=== PATIENT | male | born 1965 | race Caucasian/White ===

== ENCOUNTER 2016-03-06 08:45 | Observation (INO) | payer OTHER ==
[~2016-03-06] VITALS: Ht 180.3 cm; Wt 95.9 kg
[2016-03-06 08:48] VITALS: BP 146/97; PULSE 79; RESP 20; O2SAT 95
--- NOTE | 2016-03-06 09:07 | ED.REPORT ---
HPI-Back Pain 40 and Over Date of Service Mar 06, 2016 ED Provider: Kelly Ramachandran MD 50 year old male with a history of chronic back pain following a work injury in 2011 presents to the ED due to an exacerbation of his chronic back pain this morning. Pt woke up this morning with severe 10/10 pain. The pain is exacerbated and relieved positionally. Currently he c/o 7/10 pain. Pt has used THC and EtOH for pain relief. Pt denies numbness, weakness, fever, chills and changes in bowel or bladder. Additionally, he complains of LLE swelling and erythema. Nursing Notes Stated Complaint: BACK AND HIP PAIN Chief Complaint: General Complaint Nursing Notes Reviewed: Yes Allergies: Coded Allergies: No Known Allergies (Verified , 03/06/16) No Active Prescriptions or Reported Meds General Time Seen by MD: 09:06 Chief Complaint Back pain Hx Obtained From: Patient Arrived By: Wheelchair Sudden in Onset?: Yes Onset Occurred: 1 - 4 hours ago Symptom Duration: Since onset Caused by: Chronic Injury Location: : Spinal lumbar area Quality: Same as prior Radiation: : Does not radiate Severity: Current: Pain level 7 out of 10 (was 10/10 when he woke up) Associated with: Denies: Fever, Incontinence bladder, Incontinence bowel, Numbness both low ext, Weakness both lower ext Recent Healthcare: No recent doctor visit, No recent hospitalization Similar Sx Previous: Yes Past Medical History Past Medical History Chronic back pain from work injury. Past Surgical History None reported Smoking History Unknown if Ever Smoker Social History Drug Use: THC Other Social History: Lives with children, Local resident Ambulatory Status Independent Review of Systems Basic Review of Systems Eyes: Vision NL, No discharge ENT: Hearing NL, No pain, No nasal congestion, No pharyngeal pain Psychiatric: Normal thought content Constitutional: Denies: Chills, Fever Respiratory: Denies: Shortness of breath Cardiovascular: Denies: Chest pain GI: Denies: Diarrhea, Nausea, Vomiting Male: Denies Dysuria, Denies Flank pain Musculoskeletal: Reports: Back pain, Extremity pain, Extremity swelling Neurologic: Denies: Bladder dysfunction, Bowel dysfunction, Numbness, Weakness Complete sys rev & neg: except as marked. Physical Exam Initial Vital Signs Vital Signs (First) Date Time Temp Pulse Resp B/P Pulse Ox O2 Delivery O2 Flow Rate FiO2 03/06/16 08:48 36.7 79 20 146/97 95 Room Air Initial VS: Reviewed Head / Eyes: Atraumatic, Normocephalic, PERRL ENT: Mucous membranes moist, Conjunctiva normal, No scleral icterus Neck: Supple, Non-tender, Full range of motion Skin: Warm, Dry, No cyanosis Psychiatric: Mood/affect normal, Behavior normal, Normal thought content General/Constitutional: Awake, Alert Respiratory / Chest: Breath sounds NL, Breath sounds = bilat, No respiratory distress, No rales, No rhonchi, No wheezing Cardiovascular: Heart rate NL, Regular rhythm, Heart sounds NL, No murmurs, Peripheral circulation NL Abdomen: Atraumatic, Soft, Non-tender Back: Full range of motion General lumbar and R perilumbar spinal tenderness. Neurologic: Oriented X3, Speech NL, No motor deficits, No sensory deficits, Gait NL No foot drop. Lower Extremity / Pelvis / MS: Full range of motion, Neurologic intact, Vascular intact Edema LLE Interpretation & Diagnostics Lab Results Interpretation Result Diagram: 03/06/16 1145 03/06/16 1145 US Focused Lower Ext Venous IMPRESSION: Appearance is consistent with some acute deep venous thrombosis in the peripheral thigh. Dictated by: Sumanth Donohue M.D. on 03/06/2016 at 11:09 Exam Interpreted by: Radiologist Re-Eval/Medical Decision Med Decision/Clinical Course Patient has chronic intermittent back pain for which she came however during questioning also complained of left leg swelling and some minor trauma to the area. He was found to have a DVT. The patient says he does not have a primary care provider has a follow-up appointment with any provider later this month. The patient will be admitted to start treatment for his DVT and start his workup. Source of Hx: Old records Re-Evaluation/Progress : Time of Eval: 10:19 Patient Status: Condition unchanged Re-Evaluation/Progress Note: Disccused with patient regarding ultrasound. Patient understands and all questions have been addressed. He understands and agrees with plan for admission. Consultation : Referral / Consult Name: Rafael Warner Consulted With: Hospitalist Call Returned at: 10:44 Suppository Molding Machine Operator: Will see patient, Agrees with eval, Agrees with plan, Accepts admit Counseled Regarding: Diagnosis, Lab results, Need for admission Discharge & Departure Impression: Primary Impression: DVT (deep venous thrombosis) DVT location: lower extremity Affected thrombotic vein of extremity: unspecified vein of extremity Laterality: left Chronicity: acute Qualified Code: I82.402 - Acute embolism and thrombosis of unspecified deep veins of left lower extremity Additional Impression: Back pain Back pain location: low back pain Chronicity: unspecified Back pain laterality: unspecified Sciatica presence: without sciatica Qualified Code: M54.5 - Low back pain Disposition: ADMITTED TO HOSPITAL Discharge Condition All VS Reviewed: Yes Referrals: Helio Baum MD (PCP) [place] Attestation Portions of this note were transcribed by Gisele Jeff and Ana Laura Whitt. I, Dr. Ramachandran personally performed the history, physical exam and medical decision- making; I reviewed and confirmed the accuracy of the information in the transcribed note. Signed by: Gisele Jeff and Bharti Brown, 03/06/2016 and 1218. copies to: Heilo Baum MD, Jena M MD Mar 06, 2016 09:07 Felisha Whitt [Ana Laura] Mar 06, 2016 09:25 Gisele eJff Mar 06, 2016 09:36
[2016-03-06] MEDS ORDERED: HYDROmorphone 1 mg/mL Inj IM ONE (09:35)
--- NOTE | 2016-03-06 11:11 | DRSVH ---
PROCEDURE: US VEINOUS LEG DUPLEX UNILATERAL, LEFT INDICATIONS: left leg swelling after trauma TECHNIQUE: Real-time imaging, as well as color and pulse Doppler interrogation, were performed of the lower extr emity deep veins from the inguinal ligament to the popliteal fossa. COMPARISON: None. FINDINGS: This patient in the left lower lobe there is thrombus identified in the superficial femoral vein mid and peripherally and at the popliteal vein.. IMPRESSION: Appearance is consistent with some acute deep venous thrombosis in the peripheral thigh. Dictated by: Sumanth Donohue M.D. on 03/06/2016 at 11:09 Approved by: Sumanth Donohue M.D. on 03/06/2016 at 11:09
[2016-03-06 11:57] VITALS: BP 142/88; PULSE 74; PULSE 79; RESP 20; O2SAT 95; O2SAT 96
[2016-03-06 11:58] LABS: BASOPHILS % (AUTO) 0.5 % (0-3); EOSINOPHILS % (AUTO) 2.6 % (0-5); MONOCYTES % (AUTO) 7.9 % (4-12); Mean Corpuscular Hemoglobin 30.6 pg (27.0-35.0); Mean Corpuscular Volume 90.5 fL (81-100); NEUTROPHILS % (AUTO) 66.9 % (40-74); Platelet Count 258 bil/L (150-400)
[2016-03-06 12:00] VITALS: BP 136/84; PULSE 60; RESP 16; O2SAT 93
[2016-03-06 12:30] LABS: INR 0.89 ratio
[2016-03-06] MEDS ORDERED: Polyethylene Glycol (PEG) 17 Gm Powder PO PRN (15:20)
[2016-03-06] MEDS ORDERED: Ondansetron 2 mg/mL 2 mL Inj IVPUSH PRN (15:20)
[2016-03-06] MEDS ORDERED: Alum-Mag Hydrox-Simeth 30 mL Suspension PO PRN (15:20)
[2016-03-06 16:00] VITALS: PULSE 73
--- NOTE | 2016-03-06 17:12 | NUR ---
ADMISSION TO [facility] Patient arrived to [facility] at Noon from ED c/o back pain, diagnosis DVT. Minimal, 1 person assist with ambulation and ADL's due to history of falls, and knee surgeries. Heart healthy diet, thin liquids. Alert and oriented x4.
--- NOTE | 2016-03-06 17:18 | PCM.PHAPRO ---
Progress Date of Service: Mar 06, 2016 Requesting Provider: Rafael Warner..started on enoxaparin inr goal 2-3 today inr < 1 starting on warfarin 5mg po daily Eduardo Ramirez [facility] Mar 06, 2016 17:18
--- NOTE | 2016-03-06 17:41 | NUR ---
AMA Patient began yelling at phone while attempting to order dinner. "Why is this lady telling me I can get what ever I want from the kitchen up here but your telling me I am on a diet!" Patient began to pull phone from wall, unsuccessfully, threatening to leave and claiming to be "Better off ". Claiming to be trapped here, tricked into staying here. Security was called immediately via [employer] as this nurse began to remove telemetry machine and IV access.Mr. Kwok refused to sign AMA paperwork, and was escorted out by security. All personal items return to patient prior to leaving the unit.
--- NOTE | 2016-03-06 18:28 | NUR ---
Hospitalist paged re: JL
--- NOTE | 2016-03-06 18:48 | PCM.HPMED ---
Subjective Date of Service Mar 06, 2016 Primary Provider: Admitting Physician: Rafael Warner Primary Care Physician: Helio Baum MD Attending Physician: Rafael Warner Chief Complaint: back and left leg pain History of Present Illness: 50 year old male who denies any significant past medical history other than chronic low back and bilateral knee pain since 2011 which he attributes to job injury presents with complaint of acutely worse low back pain. He also reports hitting the side of his left leg four days ago and since then having ongoing left leg swelling and pain. In the ED LE U/S was notable for acute DVT and given patient doesn't have a PCP he was admitted for further treatment with anticoagulation and setup with PCP for further f/u as outpatient. Allergies Coded Allergies: No Known Allergies (Verified , 03/06/16) Home Medications denies any home meds Exam Vital Signs & I/O Vital Sign- Last 8 Hours Date Time Temp Pulse Resp B/P Pulse Ox O2 Delivery O2 Flow Rate FiO2 03/06/16 16:00 73 03/06/16 12:00 36.6 60 16 136/84 93 Room Air 03/06/16 11:57 36.7 74 20 142/88 96 Room Air Lab & Micro Results Laboratory Tests Test 03/06/16 11:45 03/06/16 11:56 White Blood Count 8.2th/mm3 (3.8-10.1) Red Blood Count 5.17mil/mm3 (4.40-5.80) Hemoglobin 15.8g/dL (13.8-17.2) Hematocrit 46.8% (41.0-50.0) Mean Corpuscular Volume 90.5fL (81-100) Mean Corpuscular Hemoglobin 30.6pg (27.0-35.0) Mean Corpuscular Hemoglobin Concent 33.8% (32.0-37.0) Red Cell Distribution Width 13.2% (12.3-15.4) Platelet Count 258bil/L (150-400) Neutrophils (%) (Auto) 66.9% (40-74) Lymphocytes (%) (Auto) 22.0% (14-46) Monocytes (%) (Auto) 7.9% (4-12) Eosinophils (%) (Auto) 2.6% (0-5) Basophils (%) (Auto) 0.5% (0-3) Prothrombin Time 9.5sec (8.1-12.5) Prothromb Time International Ratio 0.89ratio Sodium Level 141mEq/L (134-144) Potassium Level 4.2mEq/L (3.5-5.2) Chloride Level 104mEq/L (97-108) Carbon Dioxide Level 26mmol/L (18-29) Blood Urea Nitrogen 12mg/dL (6-24) Creatinine 0.89mg/dL (0.76-1.27) Estimat Glomerular Filtration Rate 96mL/min (>59) Glucose Level 110mg/dL (60-99) Calcium Level 8.7mg/dL (8.5-10.1) Hold Joaquin Top Tube Received (Received) Result Diagram: 03/06/16 1145 03/06/16 1145 Review of Systems: Constitutional: Negative, except as otherwise mentioned in the history above. Ophthalmologic: Negative, except as otherwise mentioned in the history above. Cardiovascular: Negative, except as otherwise mentioned in the history above. Respiratory: Negative, except as otherwise mentioned in the history above. Gastrointestinal: Negative, except as otherwise mentioned in the history above. Genitourinary: Negative, except as otherwise mentioned in the history above. Musculoskeletal: Negative, except as otherwise mentioned in the history above. Neurological: Negative, except as otherwise mentioned in the history above. Psychiatric: Negative, except as otherwise mentioned in the history above. Hematologic/Lymphatic: Negative, except as otherwise mentioned in the history above. Allergic/Immunologic: Negative, except as otherwise mentioned in the history above. PMH 1. chronic low back and bilateral knee pain which he attributes to job injury around 2011 2. Admits to smoking and snorting meth (last use 2 days ago). Denies any history of IV drug use 3. Reports history of alcohol abuse but says now only drinks 1-2 beer daily not to get drunk but more so for the taste of it. Family History father from lung cancer in his early 50's Social History Hx Alcohol Use: Yes Alcoholic Drinks Per Day: 3 Hx Substance Use: Yes (Marajuana, Meth, Prescription) Smoking Status: Unknown if Ever Smoker Exam Vital Signs Vital Sign - Last Date Time Temp Pulse Resp B/P Pulse Ox O2 Delivery O2 Flow Rate FiO2 1/8/17 16:00 73 03/06/16 12:00 36.6 16 136/84 93 Room Air General: Alert, Oriented X3, Cooperative, No Acute Distress Eyes: Scleral Anicteric Mouth: Mucous Membr Moist/[place] Chest & Lungs: Chest Wall Normal, Clear to auscultation & percussion Cardiovascular: Regular Rate/Rhythm Pulses: NL carotid, radial, femoral, DP, PT Abdomen: Non-tender, Non-distended, Normoactive bowel tones Extremities: No cyanosis/clubbing/edma bilat Neurological: Grossly Neurologically Intact, Cranial Nerves 2-12 Intact, Normal Speech Lab and Diagnostics Result Diagram: 03/06/16 1145 03/06/16 1145 X-Rays, CTs and MRIs Date of Service: 03/06/16 09 PROCEDURE: US VEINOUS LEG DUPLEX UNILATERAL, LEFT IMPRESSION: Appearance is consistent with some acute deep venous thrombosis in the peripheral thigh. Dictated by: Sumanth Donohue M.D. on 03/06/2016 at 11:09 Approved by: Sumanth Donohue M.D. on 03/06/2016 at 11:09 Assessment & Plan 50 year old male who denies any significant past medical history other than chronic low back and bilateral knee pain since 2011 which he attributes to job injury presents with complaint of acutely worse low back pain. He also reports hitting the side of his left leg four days ago and since then having ongoing left leg swelling and pain. In the ED LE U/S was notable for acute DVT and given patient doesn't have a PCP he was admitted for further treatment with anticoagulation and setup with PCP for further f/u as outpatient. Plan was to check right LE U/S as well and to continue with Lovenox and start Coumadin (dose per pharmacy) and to setup patient with new PCP for further f/u of anticoagulation therapy and hypercoagulable workup as outpatient. However, at time of writing this H&P I have been notified that patient abruptly decided to leave AMA due to "not liking the food menu"! Code status was full Code per discussion with patient earlier. Time spent 60 min Rafael Warner Mar 06, 2016 18:48
--- NOTE | 2016-03-06 18:49 | PCM.DC.MED ---
Discharge Summary Date of Service Mar 06, 2016 Dates of Hospitalization Date of Hospital Admission Mar 06, 2016 at 11:04 Date of Discharge: Mar 06, 2016 Providers: Admitting Physician: Rafael Warner Primary Care Physician: Helio Baum MD Attending Physician: Rafael Warner Diagnosis at Time of Discharge Diagnosis at Time of Discharge 1. Acute LLE DVT. poa. 2. patient left AMA Procedures XRay, CTs & MRIs Date of Service: 03/06/16 0933 PROCEDURE: US VEINOUS LEG DUPLEX UNILATERAL, LEFT IMPRESSION: Appearance is consistent with some acute deep venous thrombosis in the peripheral thigh. Dictated by: Sumanth Donohue M.D. on 03/06/2016 at 11:09 Approved by: Sumanth Donohue M.D. on 03/06/2016 at 11:09 Brief History 50 year old male who denies any significant past medical history other than chronic low back and bilateral knee pain since 2011 which he attributes to job injury presents with complaint of acutely worse low back pain. He also reports hitting the side of his left leg four days ago and since then having ongoing left leg swelling and pain. In the ED LE U/S was notable for acute DVT and given patient doesn't have a PCP he was admitted for further treatment with anticoagulation and setup with PCP for further f/u as outpatient. Hospital Course 50 year old male who denies any significant past medical history other than chronic low back and bilateral knee pain since 2011 which he attributes to job injury presents with complaint of acutely worse low back pain. He also reports hitting the side of his left leg four days ago and since then having ongoing left leg swelling and pain. In the ED LE U/S was notable for acute DVT and given patient doesn't have a PCP he was admitted for further treatment with anticoagulation and setup with PCP for further f/u as outpatient. Plan was to check right LE U/S as well and to continue with Lovenox and start Coumadin (dose per pharmacy) and to setup patient with new PCP for further f/u of anticoagulation therapy and hypercoagulable workup as outpatient. However, at time of writing this H&P I have been notified that patient abruptly decided to leave AMA due to "not liking the food menu"! Code status was full Code per discussion with patient earlier. Exam Vital Signs (Last) Date Time Temp Pulse Resp B/P Pulse Ox O2 Delivery O2 Flow Rate FiO2 03/06/16 16:00 73 03/06/16 12:00 36.6 16 136/84 93 Room Air Test 03/06/16 11:45 03/06/16 11:56 White Blood Count 8.2th/mm3 (3.8-10.1) Red Blood Count 5.17mil/mm3 (4.40-5.80) Hemoglobin 15.8g/dL (13.8-17.2) Hematocrit 46.8% (41.0-50.0) Mean Corpuscular Volume 90.5fL (81-100) Mean Corpuscular Hemoglobin 30.6pg (27.0-35.0) Mean Corpuscular Hemoglobin Concent 33.8% (32.0-37.0) Red Cell Distribution Width 13.2% (12.3-15.4) Platelet Count 258bil/L (150-400) Neutrophils (%) (Auto) 66.9% (40-74) Lymphocytes (%) (Auto) 22.0% (14-46) Monocytes (%) (Auto) 7.9% (4-12) Eosinophils (%) (Auto) 2.6% (0-5) Basophils (%) (Auto) 0.5% (0-3) Prothrombin Time 9.5sec (8.1-12.5) Prothromb Time International Ratio 0.89ratio Sodium Level 141mEq/L (134-144) Potassium Level 4.2mEq/L (3.5-5.2) Chloride Level 104mEq/L (97-108) Carbon Dioxide Level 26mmol/L (18-29) Blood Urea Nitrogen 12mg/dL (6-24) Creatinine 0.89mg/dL (0.76-1.27) Estimat Glomerular Filtration Rate 96mL/min (>59) Glucose Level 110mg/dL (60-99) Calcium Level 8.7mg/dL (8.5-10.1) Hold Joaquin Top Tube Received (Received) Discharge Medications No Active Prescriptions or Reported Meds Followup Plan Disposition: left Rafael Haines Mar 06, 2016 18:49
== END 2016-03-06 17:35 | disposition left against medical advice (07) ==
LOC: SED 08:45 → MOC 11:04
PROVIDERS: ADMIT Internal Medicine; ATTEND Internal Medicine
DX: I82.4Y2 Acute embolism and thrombosis of unspecified deep veins of left proximal lower extremity (principal); M54.5 Low back pain; M25.561 Pain in right knee; M25.562 Pain in left knee; F12.90 Cannabis use, unspecified, uncomplicated; F15.10 Other stimulant abuse, uncomplicated; F10.99 Alcohol use, unspecified with unspecified alcohol-induced disorder
CPT/HCPCS: 80048; 85025; 85610; 93970; 96372; 99285; G0378; J1170; J1650

== ENCOUNTER 2016-11-23 22:48 | Emergency (ER) | payer OTHER ==
[~2016-11-23] VITALS: Ht 180.3 cm; Wt 100.0 kg
[2016-11-23 22:58] VITALS: BP 174/101; PULSE 68; RESP 22; O2SAT 96
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
[2016-11-23] MEDS ORDERED: IBUP-1827 PO (23:51)
[2016-11-24 00:17] VITALS: BP 151/92; PULSE 66; RESP 18; O2SAT 95
--- NOTE | 2016-11-24 08:29 | DRSVH ---
PROCEDURE: X-RAY RIGHT HAND, MINIMUM THREE VIEWS ([id number]) INDICATIONS: right hand pain and swelling TECHNIQUE: 3 views of the hand(s) acquired. COMPARISON: None. FINDINGS: Bones: No fractures or dislocations. Carpal bones are normally aligned. No suspicious bony lesions . Soft tissues: No suspicious soft tissue calcifications. There is a small 1 mm chronic appearing den sity projecting in the dorsal soft tissues of one of the fingers although this is only seen on the la teral view and unclear which finger. Recommend clinical correlation. IMPRESSION: Chronic appearing fracture deformity of the fifth metacarpal. No acute bony abnormality. Small 1 mm density projects in the soft tissues of one of the fingers although exact location unclear as above. Radiographically, this appears chronic although recommend clinical correlation to exclude foreign body. Dictated by: Sunil Carey M.D. on 11/24/2016 at 8:25 Approved by: Sunil Carey M.D. on 11/24/2016 at 8:28
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
== END 2016-11-24 00:18 ==
LOC: SED 22:48
DX: S00.83XA Contusion of other part of head, initial encounter (principal); S80.02XA Contusion of left knee, initial encounter; S60.221A Contusion of right hand, initial encounter; Y04.8XXA Assault by other bodily force, initial encounter; Y93.89 Activity, other specified; Y92.149 Unspecified place in prison as the place of occurrence of the external cause; Y99.8 Other external cause status; Z87.828 Personal history of other (healed) physical injury and trauma; Z02.89 Encounter for other administrative examinations